=== PATIENT | male | born 1940 | race Caucasian/White ===

== ENCOUNTER 2018-08-29 12:41 | Day surgery (SDC) | payer OTHER ==
[2018-08-29] MEDS ORDERED: LR 1,000 ML IV ONE (13:09)
[2018-08-29] MEDS ORDERED: NS 500 ML IV SCH (13:15)
[2018-08-29] MEDS ORDERED: NS 500 ML IV ONE (14:03)
[2018-08-29] MEDS ORDERED: MIDAZOLAM 2 MG/2 ML VIAL ONE (14:20)
[2018-08-29] MEDS ORDERED: fentaNYL 100 MCG/2 ML INJ ONE (14:20)
[2018-08-29] MEDS ORDERED: PROPOFOL/EMULSION 500 MG/50 ML BOTTLE IV ONE (14:20)
--- NOTE | 2018-08-29 14:20 | PDGENHP ---
History & Physical Chief Complaint: Surveillance colonoscopy History of Present Illness: Surveillance colonoscopy. Cousin with colon cancer. Personal history of colon polyps. 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 SH: No tob or ETOH. FH: colon cancer 2nd degree relative Relevant Physical Exam: NAD. RRR. Occasional ectopy. CTA B/L. Obese. Soft. NT /ND. NABS. Cardiorespiratory Assessment: Colonoscopy. Held pradxa for 3 days. MAC with IV sedation. ASA III
[2018-08-29] MEDS ORDERED: LIDOCAINE 2% 5 ML SDV ONE (14:21)
--- NOTE | 2018-08-29 14:23 | PDANEPAE ---
ANE History of Present Illness colonoscopy ANE Past Medical History - Cardiovascular History Hx Hypertension: Yes Hx Arrhythmias: Yes Hx Chest Pain: No Hx Coronary Artery / Peripheral Vascular Disease: Yes Hx CHF / Valvular Disease: No Hx Palpitations: No Cardiovascular History Comment: Afib/flutter - Pulmonary History Hx COPD: No Hx Asthma/Reactive Airway Disease: No Hx Recent Upper Respiratory Infection: No Hx Oxygen in Use at Home: No Hx Sleep Apnea: Yes Sleep Apnea Screening Result - Last Documented: Positive Pulmonary History Comment: SAFIA USES CPAP - Neurologic History Hx Cerebrovascular Accident: No Hx Seizures: No Hx Dementia: No - Endocrine History Hx Diabetes: Yes Hypothyroid: No Hyperthyroid: No Obesity: moderate Endocrine History Comment: 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 2015 R ankle replacement ANE Review of Systems Review of Systems: - Exercise capacity Exercise capacity: >=4 METS METS (RN): 4 METS ANE Patient History - Allergies Allergies/Adverse Reactions: No Known Allergies Allergy (Verified 08/07/18 12:25) - Home Medications Home medications: home medication list seen and reviewed Home Medications: Allopurinol 08/07/18 [Last Taken Unknown] Atorvastatin Calcium 08/07/18 [Last Taken Unknown] Co Q-10 08/07/18 [Last Taken Unknown] Diltiazem 08/07/18 [Last Taken Unknown] Flomax 08/07/18 [Last Taken Unknown] Herbals/Supplements -Info Only 08/07/18 [Last Taken Unknown] Lantus Solostar 08/07/18 [Last Taken Unknown] Levothyroxine 08/07/18 [Last Taken Unknown] Metformin HCl 08/07/18 [Last Taken Unknown] Pradaxa 08/07/18 [Last Taken Unknown] Sotalol HCl 08/07/18 [Last Taken Unknown] novoLOG 08/07/18 [Last Taken Unknown] - NPO status NPO Status: no food or drink >8 hours NPO Since - Liquids (Date): 08/29/18 NPO Since - Liquids (Time): 10:00 NPO Since - Solids (Date): 08/28/18 NPO Since - Solids (Time): 08:00 - Smoking Hx Smoking Status: Former smoker - Family Anes Hx Family Hx Anesthesia Complications: none ANE Labs/Vital Signs - Vital Signs Blood Pressure: 138/74 Heart Rate: 60 Respiratory Rate: 16 O2 Sat (%): 94 Height: 187.96 cm Weight: 113.398 kg ANE Physical Exam - Airway Mallampati Score: Class 2 Mouth exam: normal dental/mouth exam - Pulmonary Pulmonary: no respiratory distress - Cardiovascular Cardiovascular: regular rate and rhythym - ASA Status ASA Status: III ANE Anesthesia Plan Anesthesia Plan: GA with mask
[2018-08-29] MEDS ORDERED: NALOXONE HCL 0.4 MG/ML INJ IVP PRN (14:38)
[2018-08-29] MEDS ORDERED: ACETAMINOPHEN 500 MG TAB PO PRN (14:38)
[2018-08-29] MEDS ORDERED: fentaNYL 100 MCG/2 ML INJ IVP PRN (14:38)
[2018-08-29] MEDS ORDERED: ONDANSETRON 4 MG/2 ML VIAL IVP PRN (14:38)
[2018-08-29] MEDS ORDERED: ePHEDrine SULFATE 25 MG/5 ML SYR ONE (14:42)
--- NOTE | 2018-08-29 15:01 | GIREPORT ---
[facility] - Endoscopy Department Patient Name: Rodolfo Mcdermott Procedure Date: 08/29/2018 2:16 PM Patient Type: Outpatient Attending / ER Physician: Matt Vences MD Procedure: Colonoscopy Indications: High risk colon cancer surveillance: Personal history of colonic polyps Providers: Matt Vences MD Medicines: Propofol per Anesthesia Complications: No immediate complications. Description of Procedure: After obtaining informed consent, the scope was passed under direct vis ion. Throughout the procedure, the patient's blood pressure, pulse, and oxyg en saturations were monitored continuously. The Colonoscope with irrigatio n channel was introduced through the anus and advanced to the cecum, identified by appendiceal orifice and ileocecal valve. The colonoscopy was technically difficult and complex due to a tortuous colon and the patie nt's body habitus. Successful completion of the procedure was aided by using manual pressure and withdrawing and reinserting the scope. The patient tolerated the procedure well. The quality of the bowel preparation was excellent. The ileocecal valve, appendiceal orifice, and rectum were photographed. Findings: The perianal and digital rectal examinations were normal. Pertinent negatives include normal sphincter tone, no palpable rectal lesions and normal prostate (size, shape, and consistency). A 7 mm polyp was found in the ascending colon. The polyp was sessile. T he polyp was removed with a cold biopsy forceps. Resection and retrieval w ere complete. Multiple small and large-mouthed diverticula were found in the sigmoid colon. The colon (entire examined portion) was significantly tortuous. Estimated Blood Loss: Estimated blood loss: none. Post Op Diagnosis: - One 7 mm polyp in the ascending colon, removed with a cold biopsy for ceps. Resected and retrieved. - Diverticulosis in the sigmoid colon. - Tortuous colon. Recommendation: - Await pathology results. - Resume Pradaxa (dabigatran) at prior dose tomorrow. [facility] of [facility]. - Repeat colonoscopy is not recommended for surveillance. - Resume previous diet. - Continue present medications. - Patient has a contact number available for emergencies. The signs and symptoms of potential delayed complications were discussed with the pat ient. Return to normal activities tomorrow. Written discharge instructions we re provided to the patient. - Thank you for allowing me to be involved in the care of your patient. Attending Participation: I personally performed the entire procedure without the assistance of a fellow, resident or surg ical diagnostic assistant. Matt Vences MD Matt Vences MD 08/29/2018 3:01:15 PM This report has been signed electronicallyDavid MD Ru Number of Addenda: 0 Note Initiated On: 08/29/2018 2:16 PM Total Procedure Duration Time 0 hours 27 minutes 24 seconds [email or web address]
--- NOTE | 2018-08-29 15:03 | POSTANESTH ---
Post Anesthetic Evaluation Cardiovascular Status: Normal, Stable Respiratory Status: Normal, Stable Level of Consciousness/Mental Status: Can Participate in Eval Pain Control: Adequate, Prn Tx Ordered Nausea/Vomiting Control: Adequate, Prn Tx Ordered Complications Possibly Related to Anesthesia: None Noted
[2018-08-29 15:45] VITALS: BP 153/73
== END 2018-08-29 15:45 | disposition home or self-care (01) ==
LOC: FSGY 12:41
PROVIDERS: ATTEND Internal Medicine Gastroenterology
PROC: 0DBK8ZX Excision of Ascending Colon, Via Natural or Artificial Opening Endoscopic, Diagnostic (ICD-10-PCS; principal; 2018-08-29 14:30)
DX: D12.2 Benign neoplasm of ascending colon (principal); K57.30 Diverticulosis of large intestine without perforation or abscess without bleeding; Z86.010 Personal history of colon polyps; Z80.0 Family history of malignant neoplasm of digestive organs; I48.91 Unspecified atrial fibrillation; I12.9 Hypertensive chronic kidney disease with stage 1 through stage 4 chronic kidney disease, or unspecified chronic kidney disease; I25.10 Atherosclerotic heart disease of native coronary artery without angina pectoris; E11.22 Type 2 diabetes mellitus with diabetic chronic kidney disease; G47.33 Obstructive sleep apnea (adult) (pediatric); G61.0 Guillain-Barre syndrome; N18.3 Chronic kidney disease, stage 3 (moderate)
CPT/HCPCS: J2250; J2704; J3010